=== PATIENT | male | born 1985 | race Caucasian/White ===

== ENCOUNTER 2017-09-24 04:15 | Emergency (ER) | payer OTHER ==
[~2017-09-24] VITALS: Ht 170.2 cm; Wt 68.0 kg
[~2017-09-24 04:15] MED LIST: ALBU90OI INH; AMOX500 PO; AZIT500 PO; BENZ100A PO; BUPRENORPHINE HC8 MG SL; Bactrim Ds Tab1 EACH PO; CEPH500 PO; CLON.5 PO; CODACE30 PO; CRUTCH4 USE; CYCL10 PO; Crutch1 EACH MISC; HYDACE5 PO; HYDR1TAB94 PO; IBUP600 PO; IBUP800 PO; Keflex500 MG PO; Mobic7.5 MG PO; NAPR375 PO; NAPR550; NAPR550 PO; Norco 5-325 Ta1 EACH PO; OXYACE5T PO; OXYACE7.5T PO; PENVK500 PO; PRED20 PO; PROM25 PO; RXTRAM50 PO; SULTRIDS PO; SUMA25 PO; TRAM50 PO; TREXIMET; [UNRECOGNIZED DRUG - REMARK]
[2017-09-24] MEDS ORDERED: Percocet 5-3251 EACH PO (06:22)
== END 2017-09-24 06:30 | disposition home or self-care (01) ==
LOC: ER 04:15
DX: S46.311A Strain of muscle, fascia and tendon of triceps, right arm, initial encounter (principal); F17.200 Nicotine dependence, unspecified, uncomplicated; X50.9XXA Other and unspecified overexertion or strenuous movements or postures, initial encounter
CPT/HCPCS: 73060; 99283

== ENCOUNTER 2017-10-06 16:43 | Emergency (ER) | payer OTHER ==
[~2017-10-06] VITALS: Ht 170.2 cm; Wt 74.8 kg
[~2017-10-06 16:43] MED LIST changes: +Percocet 5-3251 EACH PO
[2017-10-06] MEDS ORDERED: Bactrim Ds Tab1 EACH PO (17:26)
== END 2017-10-06 17:31 | disposition home or self-care (01) ==
LOC: ER 16:43
DX: L02.01 Cutaneous abscess of face (principal); F17.200 Nicotine dependence, unspecified, uncomplicated
CPT/HCPCS: 99282

== ENCOUNTER 2017-12-24 16:18 | Emergency (ER) | payer OTHER ==
[~2017-12-24] VITALS: Ht 167.6 cm; Wt 68.0 kg
[2017-12-24 17:01] LABS: BASOPHILS ABSOLUTE AUTO 0.03 K/mm3 (0.00-0.23); BASOPHILS PERCENT AUTO 1 % (0-2); EOSINOPHILS ABSOLUTE AUTO 0.12 K/mm3 (0.00-0.68); EOSINOPHILS PERCENT AUTO 3 % (0-6); Hematocrit 43.1 % (37.0-53.0); Hemoglobin 14.5 g/dL (13.5-17.5); IMMATURE GRAN ABSOLUTE AUTO 0.01 K/mm3 (0.00-0.10); IMMATURE GRAN PERCENT AUTO 0 % (0-1); LYMPHOCYTES ABSOLUTE AUTO 1.39 K/mm3 (0.84-5.20); LYMPHOCYTES PERCENT AUTO 32 % (21-46); MONOCYTES ABSOLUTE AUTO 0.49 K/mm3 (0.16-1.47); MONOCYTES PERCENT AUTO 11 % (4-13); Mean Corpuscular HGB 30.4 pg (26.0-34.0); Mean Corpuscular HGB Conc 33.6 g/dL (31.5-36.5); Mean Corpuscular Volume 90 fL (80-100); Mean Platelet Volume 9.7 fL (9.1-12.4); NEUTROPHILS ABSOLUTE AUTO 2.26 K/mm3 (1.96-9.15); NEUTROPHILS PERCENT AUTO 53 % (41-73); Platelet Count 158 K/mm3 (150-400); RDW Standard Deviation 42.5 fL (35.1-46.3); Red Blood Cell Count 4.77 M/mm3 (4.30-5.90)
[2017-12-24 18:29] LABS: Anion Gap 7 mmol/L (6-16); Blood Urea Nitrogen 15 mg/dL (8-24); CO2, Blood 24 mmol/L (21-32); Calcium, Blood 7.9 mg/dL (8.5-10.1); Chloride, Blood 109 mmol/L (98-108); Creatinine, Blood 0.68 mg/dL (0.60-1.20); Glomerular Filtration Rate >60 (60-); Glucose, Blood 99 mg/dL (70-99); Potassium, Blood 3.8 mmol/L (3.5-5.5); Sodium, Blood 140 mmol/L (136-145)
== END 2017-12-24 19:10 | disposition home or self-care (01) ==
LOC: ER 16:18
PROVIDERS: Emergency Medicine
DX: T40.1X1A Poisoning by heroin, accidental (unintentional), initial encounter (principal); G43.909 Migraine, unspecified, not intractable, without status migrainosus; F17.210 Nicotine dependence, cigarettes, uncomplicated
CPT/HCPCS: 80048; 85025; 93005; 93010; 96361; 96374; 99283; J2405; J7030

== ENCOUNTER 2018-03-14 23:17 | Emergency (ER) | payer OTHER ==
[~2018-03-14] VITALS: Ht 170.2 cm; Wt 70.3 kg
[2018-03-14] MEDS ORDERED: BUPRENORPHINE HC2 MG (23:29)
[2018-03-14] MEDS ORDERED: CLIN300 PO (23:46)
[2018-03-14] MEDS ORDERED: IBUP600 PO (23:46)
== END 2018-03-15 00:54 | disposition home or self-care (01) ==
LOC: ER 23:17
DX: L02.416 Cutaneous abscess of left lower limb (principal); L03.116 Cellulitis of left lower limb; Z79.899 Other long term (current) drug therapy; G43.909 Migraine, unspecified, not intractable, without status migrainosus; F17.210 Nicotine dependence, cigarettes, uncomplicated
CPT/HCPCS: 36415; 96365; 96375; 99283; J1885

== ENCOUNTER 2019-06-21 03:37 | Emergency (ER) | payer OTHER ==
[~2019-06-21] VITALS: Ht 170.2 cm; Wt 72.6 kg
[~2019-06-21 03:37] MED LIST changes: +BUPRENORPHINE HC2 MG; +CLIN300 PO
[2019-06-21 05:07] LABS: BASOPHILS ABSOLUTE AUTO 0.04 K/mm3 (0.00-0.23); BASOPHILS PERCENT AUTO 1 % (0-2); EOSINOPHILS PERCENT AUTO 4 % (0-6); Hematocrit 36.5 % (37.0-53.0); Hemoglobin 11.9 g/dL (13.5-17.5); IMMATURE GRAN ABSOLUTE AUTO 0.02 K/mm3 (0.00-0.10); IMMATURE GRAN PERCENT AUTO 0 % (0-1); LYMPHOCYTES ABSOLUTE AUTO 1.18 K/mm3 (0.84-5.20); LYMPHOCYTES PERCENT AUTO 16 % (21-46); MONOCYTES ABSOLUTE AUTO 0.51 K/mm3 (0.16-1.47); MONOCYTES PERCENT AUTO 7 % (4-13); Mean Corpuscular HGB 28.7 pg (26.0-34.0); Mean Corpuscular HGB Conc 32.6 g/dL (31.5-36.5); Mean Corpuscular Volume 88 fL (80-100); Mean Platelet Volume 9.3 fL (9.1-12.4); NEUTROPHILS ABSOLUTE AUTO 5.23 K/mm3 (1.96-9.15); NEUTROPHILS PERCENT AUTO 72 % (41-73); Platelet Count 290 K/mm3 (150-400); RDW Coefficient Variation 12.1 % (11.7-14.2); RDW Standard Deviation 39.4 fL (35.1-46.3); Red Blood Cell Count 4.14 M/mm3 (4.30-5.90); White Blood Cell Count 7.28 K/mm3 (4.00-11.30)
[2019-06-21 05:26] LABS: Alanine Aminotransfer (ALT/SGP 25 U/L (12-78); Albumin, Blood 3.2 g/dL (3.4-5.0); Albumin/Globulin Ratio 0.7 (0.8-1.8); Alk Phos 68 U/L (50-136); Anion Gap 6 mmol/L (6-16); Aspartate Aminotrans (AST/SGOT 18 U/L (12-37); Bilirubin, Total 0.9 mg/dL (0.1-1.0); Blood Urea Nitrogen 13 mg/dL (8-24); Bun/Creatinine Ratio 17.2 (12.0-20.0); CO2, Blood 32 mmol/L (21-32); Calcium, Blood 8.6 mg/dL (8.5-10.1); Chloride, Blood 100 mmol/L (98-108); Creatinine, Blood 0.76 mg/dL (0.60-1.20); Globulin, Blood 4.4 g/dL (2.2-4.0); Glomerular Filtration Rate >60 (60-); Glucose, Blood 89 mg/dL (70-99); Potassium, Blood 3.4 mmol/L (3.5-5.5); Sodium, Blood 138 mmol/L (136-145); Total Protein, Blood 7.6 g/dL (6.4-8.2)
[2019-06-21] MEDS ORDERED: Bactrim Ds Tab1 EACH PO (05:28)
[2019-06-21] MEDS ORDERED: IBUP600 PO (05:28)
[2019-06-21] MEDS ORDERED: Crutch1 EACH EXT (06:18)
== END 2019-06-21 06:26 | disposition home or self-care (01) ==
LOC: ER 03:37
PROVIDERS: Emergency Medicine
DX: L03.116 Cellulitis of left lower limb (principal); F17.210 Nicotine dependence, cigarettes, uncomplicated
CPT/HCPCS: 36415; 80053; 83605; 85025; 85651; 86141; 87040; 96365; 96375; 99283-25; J1885; J3370

== ENCOUNTER 2019-09-11 21:37 | Inpatient (IN) | payer OTHER ==
[~2019-09-11] VITALS: Ht 172.7 cm; Wt 68.0 kg
[~2019-09-11 21:37] MED LIST changes: +Crutch1 EACH EXT
[2019-09-12 00:11] LABS: BASOPHILS ABSOLUTE AUTO 0.04 K/mm3 (0.00-0.23); BASOPHILS PERCENT AUTO 0 % (0-2); EOSINOPHILS ABSOLUTE AUTO 0.14 K/mm3 (0.00-0.68); EOSINOPHILS PERCENT AUTO 1 % (0-6); Hemoglobin 11.5 g/dL (13.5-17.5); IMMATURE GRAN ABSOLUTE AUTO 0.03 K/mm3 (0.00-0.10); IMMATURE GRAN PERCENT AUTO 0 % (0-1); LYMPHOCYTES ABSOLUTE AUTO 1.13 K/mm3 (0.84-5.20); LYMPHOCYTES PERCENT AUTO 12 % (21-46); MONOCYTES ABSOLUTE AUTO 0.69 K/mm3 (0.16-1.47); MONOCYTES PERCENT AUTO 7 % (4-13); Mean Corpuscular HGB 27.6 pg (26.0-34.0); Mean Corpuscular HGB Conc 31.9 g/dL (31.5-36.5); Mean Corpuscular Volume 86 fL (80-100); Mean Platelet Volume 9.3 fL (9.1-12.4); NEUTROPHILS ABSOLUTE AUTO 7.71 K/mm3 (1.96-9.15); NEUTROPHILS PERCENT AUTO 79 % (41-73); Platelet Count 242 K/mm3 (150-400); RDW Coefficient Variation 13.1 % (11.7-14.2); RDW Standard Deviation 41.2 fL (35.1-46.3); Red Blood Cell Count 4.17 M/mm3 (4.30-5.90); White Blood Cell Count 9.74 K/mm3 (4.00-11.30)
[2019-09-12 00:36] LABS: Anion Gap 8 mmol/L (6-16); Blood Urea Nitrogen 11 mg/dL (8-24); Bun/Creatinine Ratio 16.1 (12.0-20.0); CO2, Blood 21 mmol/L (21-32); Calcium, Blood 7.3 mg/dL (8.5-10.1); Chloride, Blood 92 mmol/L (98-108); Creatinine, Blood 0.68 mg/dL (0.60-1.20); Glomerular Filtration Rate >60 (60-); Glucose, Blood 82 mg/dL (70-99); Potassium, Blood 3.3 mmol/L (3.5-5.5); Sodium, Blood 121 mmol/L (136-145)
[2019-09-12 01:35] LABS: International Normalized Ratio 1.03; Prothrombin Time Results 10.9 Sec (9.7-11.5)
--- NOTE | 2019-09-12 05:53 | NUR ---
SHIFT SUMMARY PATIENT IS ALERT AND ORIENTED. HE IS EXPERIENCING PAIN FROM A LARGE ABSCESS ON HIS NECK. ENT CONSULT CALLED IN TO DR CLARK. ANSWERING SERVICE WILL DELIVER THE MESSAGE AT 0700. PATIENT CHANGED FROM IV POTASSIUM TO PO DUE TO HIS INABILITY TO TOLERATE THE IV FORM. HE IS CURRENTLY ON ROOM AIR AND IS ON CONTINUOUS BIOX TO MONITOR HIS OXYGEN SATURATION. PATIENT'S IV IS PATENT AND INFUSING WITH NORMAL SALINE AT 100 ML/HR. BED IN LOWEST POSITION WITH WHEELS LOCKED. CALL LIGHT WITHIN REACH. REPORT GIVEN TO ONCOMING RN.
--- NOTE | 2019-09-12 16:57 | NUR ---
PT AOX4 AND COOPERATIVE OF CARE. PT TREATED FOR PAIN PER EMAR DUE TO ABCESS. DR CLARK WAS ABLE TO COME IN AND DRAIN ABCESS SENDING OF A SAMPLE TO BE TESTED FOR BACTERIA. COVERED ABCESS WITH GAUZE IN CASE THERE WAS ANY DRAINAGE. PT INDEPENDENT IN ROOM AND CALLS APPROPRAITELY. NO DISTRESS NOTED WILL CONTINUE TO MONITOR.
--- NOTE | 2019-09-13 04:36 | NUR ---
SHIFT SUMMARY PT CONTINUES TO HAVE NECK DISCOMFORT. PT RESPONDED WELL TO PAIN MEDICATION. PT HAS REPORTED INCREASED EASE IN BREATHING AND SWALLOWING. PT HAD NO OTHER ISSUES NOTED. PT REPORTS SLEEPING OFF AND ON T/O SHIFT. PT IS AWAKE WATCHING TV AND BREATHING EASY. CALL LIGHT IN REACH.
[2019-09-13 09:49] LABS: Vancomycin, Trough 11.5 ug/mL (5.0-10.0)
[2019-09-13 09:59] LABS: Anion Gap 9 mmol/L (6-16); Blood Urea Nitrogen 16 mg/dL (8-24); Bun/Creatinine Ratio 23.6 (12.0-20.0); CO2, Blood 23 mmol/L (21-32); Calcium, Blood 8.8 mg/dL (8.5-10.1); Chloride, Blood 109 mmol/L (98-108); Creatinine, Blood 0.68 mg/dL (0.60-1.20); Glomerular Filtration Rate >60 (60-); Glucose, Blood 72 mg/dL (70-99); Potassium, Blood 4.4 mmol/L (3.5-5.5); Sodium, Blood 141 mmol/L (136-145)
[2019-09-13] MEDS ORDERED: Augmentin 875-1 EACH PO (11:35)
--- NOTE | 2019-09-13 12:53 | NUR ---
PT DISCHARGED AT 1200. PT WAS SET ON DISCHARGING TODAY. ALL PAPERWORK WAS PREPARED AND REVIEWED AND EDCUATIONAL MATERIAL SENT WITH PT. PT VERY ANXIOUS TO LEAVE WANTED TO LEAVE WITHOUT PAPERS. MANAGE TO GET ALL PAPERWORK TO PT AND TOOK OUT IV. HAD PT SIGN LEFT ROOM TO PUT PAPER IN CHART AND PT LEFT ROOM IMMEDIATELY. 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 CALLED DR CLARK'S OFFICE TO LET HIM KNOW PT DISCHARGING AROUND NOON TODAY. PT DID NOT HAVE A PCP AND WAS INSTRUCTED TO SET UP CARE WITH [facility]. PT VERBALIZED UNDERSTANDING OF ALL INSTRUCTIONS.
== END 2019-09-13 11:53 | disposition home or self-care (01) | DRG 603 ==
LOC: ER 21:37 → MEDS 09-12 01:38 → ENPENDDIS 09-13 11:32 → MEDS 09-13 11:53
PROVIDERS: Hospitalist; Nurse Practitioner Acute Care; Physician Assistant; ADMIT Internal Medicine
PROC: 0J943ZZ Drainage of Right Neck Subcutaneous Tissue and Fascia, Percutaneous Approach (ICD-10-PCS; principal; 2019-09-12)
DX: L02.11 Cutaneous abscess of neck (principal); E87.1 Hypo-osmolality and hyponatremia; G43.909 Migraine, unspecified, not intractable, without status migrainosus; F17.210 Nicotine dependence, cigarettes, uncomplicated; F15.10 Other stimulant abuse, uncomplicated; E87.6 Hypokalemia; Z86.14 Personal history of Methicillin resistant Staphylococcus aureus infection
CPT/HCPCS: 36415; 70491; 80048; 80202; 83605; 85025; 85610; 85730; 87040; 87070; 87075; 87077; 87147; 87186; 87205; 94762; 96374-59; 99284-25; J1170; J1885; J3370; J3480; J7030; Q9967

== ENCOUNTER 2019-10-21 15:49 | Inpatient (IN) | payer OTHER ==
[~2019-10-21] VITALS: Ht 172.7 cm; Wt 69.4 kg
[~2019-10-21 15:49] MED LIST changes: +Augmentin 875-1 EACH PO
[2019-10-21 16:44] LABS: BASOPHILS ABSOLUTE AUTO 0.02 K/mm3 (0.00-0.23); BASOPHILS PERCENT AUTO 0 % (0-2); EOSINOPHILS ABSOLUTE AUTO 0.03 K/mm3 (0.00-0.68); EOSINOPHILS PERCENT AUTO 1 % (0-6); Hematocrit 32.8 % (37.0-53.0); Hemoglobin 10.8 g/dL (13.5-17.5); IMMATURE GRAN ABSOLUTE AUTO 0.11 K/mm3 (0.00-0.10); IMMATURE GRAN PERCENT AUTO 2 % (0-1); LYMPHOCYTES ABSOLUTE AUTO 0.54 K/mm3 (0.84-5.20); LYMPHOCYTES PERCENT AUTO 8 % (21-46); MONOCYTES ABSOLUTE AUTO 0.38 K/mm3 (0.16-1.47); MONOCYTES PERCENT AUTO 6 % (4-13); Mean Corpuscular HGB 26.6 pg (26.0-34.0); Mean Corpuscular HGB Conc 32.9 g/dL (31.5-36.5); Mean Corpuscular Volume 81 fL (80-100); Mean Platelet Volume 12.3 fL (9.1-12.4); NEUTROPHILS ABSOLUTE AUTO 5.41 K/mm3 (1.96-9.15); NEUTROPHILS PERCENT AUTO 83 % (41-73); Platelet Count 82 K/mm3 (150-400); RDW Coefficient Variation 14.6 % (11.7-14.2); RDW Standard Deviation 43.1 fL (35.1-46.3); Red Blood Cell Count 4.06 M/mm3 (4.30-5.90); White Blood Cell Count 6.49 K/mm3 (4.00-11.30)
[2019-10-21 17:02] LABS: Alanine Aminotransfer (ALT/SGP 17 U/L (12-78); Albumin, Blood 1.6 g/dL (3.4-5.0); Albumin/Globulin Ratio 0.3 (0.8-1.8); Alk Phos 89 U/L (50-136); Anion Gap 6 mmol/L (6-16); Aspartate Aminotrans (AST/SGOT 37 U/L (12-37); Bilirubin, Total 1.3 mg/dL (0.1-1.0); Blood Urea Nitrogen 17 mg/dL (8-24); Bun/Creatinine Ratio 20.8 (12.0-20.0); CO2, Blood 25 mmol/L (21-32); Calcium, Blood 7.4 mg/dL (8.5-10.1); Chloride, Blood 97 mmol/L (98-108); Creatinine, Blood 0.82 mg/dL (0.60-1.20); Globulin, Blood 5.5 g/dL (2.2-4.0); Glomerular Filtration Rate >60 (60-); Glucose, Blood 100 mg/dL (70-99); Potassium, Blood 4.4 mmol/L (3.5-5.5); Sodium, Blood 128 mmol/L (136-145); Total Protein, Blood 7.1 g/dL (6.4-8.2); Troponin I <0.015 ng/mL (0.000-0.040)
[2019-10-21] MEDS ORDERED: TRAZ50 PO (21:16)
[2019-10-22 00:17] LABS: Source, Urine Clean Catch
[2019-10-22 00:29] LABS: Appearance, Urine Clear (Clear); Bilirubin, Urine Neg (Neg); Blood, Urine 1+ (Neg); Color, Urine Yellow (P-Yellow); Glucose Qualitative, Urine Neg (Neg); Ketones, Urine Neg (Neg); Leukocyte Esterase, Urine Neg (Neg); Nitrite, Urine Neg (Neg); Protein, Urine 1+ (Neg); Specific Gravity, Urine 1.015 (1.003-1.022); Urobilinogen, Urine 1+ (Normal)
[2019-10-22 00:36] LABS: Bacteria Few /hpf; Squamous Epithelial Cells Few /hpf (Few)
[2019-10-22 00:41] LABS: U Amphetamine Screen Not Detected; U Barbituate Screen Not Detected; U Benzodiazapine Screen Not Detected; U Buprenorphine Screen DETECTED; U Cannabinoids Screen Not Detected; U Cocaine Screen Not Detected; U Methadone Screen Not Detected; U Methamphetamine Screen Not Detected; U Opiates Screen DETECTED; U Oxycodone Screen Not Detected; U Phencyclidine Screen Not Detected; U Propoxyphene Screen Not Detected
[2019-10-22 05:19] LABS: BASOPHILS ABSOLUTE AUTO 0.01 K/mm3 (0.00-0.23); BASOPHILS PERCENT AUTO 0 % (0-2); Hematocrit 23.1 % (37.0-53.0); Hemoglobin 7.7 g/dL (13.5-17.5); LYMPHOCYTES ABSOLUTE AUTO 0.43 K/mm3 (0.84-5.20); LYMPHOCYTES PERCENT AUTO 6 % (21-46); MONOCYTES ABSOLUTE AUTO 0.68 K/mm3 (0.16-1.47); MONOCYTES PERCENT AUTO 9 % (4-13); Mean Corpuscular HGB 26.8 pg (26.0-34.0); Mean Corpuscular HGB Conc 33.3 g/dL (31.5-36.5); Mean Corpuscular Volume 81 fL (80-100); Mean Platelet Volume 12.2 fL (9.1-12.4); Platelet Count 86 K/mm3 (150-400); RDW Coefficient Variation 14.5 % (11.7-14.2); RDW Standard Deviation 42.8 fL (35.1-46.3); Red Blood Cell Count 2.87 M/mm3 (4.30-5.90); White Blood Cell Count 7.27 K/mm3 (4.00-11.30)
[2019-10-22 05:22] LABS: EOSINOPHILS ABSOLUTE AUTO 0.02 K/mm3 (0.00-0.68); EOSINOPHILS PERCENT AUTO 0 % (0-6); IMMATURE GRAN ABSOLUTE AUTO 0.06 K/mm3 (0.00-0.10); IMMATURE GRAN PERCENT AUTO 1 % (0-1); NEUTROPHILS ABSOLUTE AUTO 6.07 K/mm3 (1.96-9.15); NEUTROPHILS PERCENT AUTO 84 % (41-73)
[2019-10-22 05:34] LABS: Alanine Aminotransfer (ALT/SGP 14 U/L (12-78); Albumin, Blood 1.2 g/dL (3.4-5.0); Albumin/Globulin Ratio 0.3 (0.8-1.8); Alk Phos 92 U/L (50-136); Anion Gap 7 mmol/L (6-16); Aspartate Aminotrans (AST/SGOT 22 U/L (12-37); Bilirubin, Total 0.8 mg/dL (0.1-1.0); Blood Urea Nitrogen 11 mg/dL (8-24); Bun/Creatinine Ratio 17.5 (12.0-20.0); CO2, Blood 21 mmol/L (21-32); Calcium, Blood 6.7 mg/dL (8.5-10.1); Chloride, Blood 107 mmol/L (98-108); Creatinine, Blood 0.63 mg/dL (0.60-1.20); Globulin, Blood 4.3 g/dL (2.2-4.0); Glomerular Filtration Rate >60 (60-); Glucose, Blood 110 mg/dL (70-99); Potassium, Blood 3.8 mmol/L (3.5-5.5); Sodium, Blood 135 mmol/L (136-145); Total Protein, Blood 5.5 g/dL (6.4-8.2)
--- NOTE | 2019-10-22 05:47 | NUR ---
SHIFT SUMMARY PATIENT ARRIVED FROM E.D. WITH A TEMP OF 100.6, HAS CONTINUED TO TREND DOWN THROUGH THE SHIFT, 98.9 @ 05:00. PATIENT HAS MAINTAINED DECENT URINE OUTPUT, ABOUT 1L IN LAST 12 HOURS. PATIENT DID RECEIVE 6L TOTAL FLUID BOLUS, BETWEEN ED AND ICU. CENTRAL LINE DRESSING WAS CHANGED @ 05:30. RIB PAIN WAS TREATED WITH X1 PRN TRAMADOL, MINIMAL IMPROVEMENT. OXYGENATION WAS MAINTAINED ON 1L NC, DID DESATURATE DURING SLEEP WHEN OFF OXYGEN. DOES C/O WORSENING RIB PAIN WHEN ASKED TO TAKE A DEEP BREATH. MAINTAINS IN STABLE SINUS TACHYCARDIA. HAVE STEADILY DECREASED LEVOPHED DRIP THROUGH NIGHT, CURRENTLY AT 5 MCG/MIN. NO BM. SKIN LOOKS CLEAN, DRY, INTACT, ABCESS ON RIGHT SIDE OF NECK IS HEALED, SLIGHT DISCOLORATION. ASSESSMENT IS CHARTED. VSS. WILL CONTINUE TO MONITOR.
--- NOTE | 2019-10-22 08:00 | NUR ---
Received report from Louis ZEPEDA. Patient supine in bed rest and awakened to verbal stimuli. He is alert and oriented and is able to communicate his needs and calls appropriately. He is on 1.5 L O2 via NC and sats low 90%'s. He has 22 ga IV LAC dressing intact and site WNL's and is flushed and SL'd. He also has Left Subclavin quad lumen CL idressing intact and site WNL's infusuing Levophed 3 mcg/minb and NS at 200ml/hr. He ueses urinal approprialtely. Called Dr Whitlock and he stated OK to feed and patient able to feed self.
--- NOTE | 2019-10-22 09:43 | NUR ---
Patient up to bathroom with minimal assist. Echo finished and Dr Whitlock given report. Dr Whitlock went in room and talked and assessed patient and is calling for opinion from [facility] on valve issues. Patient resting currently. He denies any need for pain intervention or any other needs.
--- NOTE | 2019-10-22 12:15 | NUR ---
Patient has been snacking between naps. Dr Whitlock went in and talked with patient about transfer to [facility] and he has agreed. We are currently awaiting room assignment. Increased Levophed to 6mcg/min for MAP in the 50s and systolic low 90's. He reamins on 1.5 L O2 via NC and sats low 90%'s. Mother called and gave update and he called sister to let her know.
[2019-10-22 13:46] LABS: Vancomycin, Trough 8.1 ug/mL (5.0-10.0)
--- NOTE | 2019-10-22 14:33 | NUR ---
Patient tolerated lunch well but later stated pain getting worse and scheduled med un available and called Dr Whitlock and got one time dose Dilaudid and he is resting well, VSS, Levophed remains at 6mcg/min ffor systolic 110. Patient has been up to bathroom with assist of lines and tubes.
--- NOTE | 2019-10-22 15:35 | NUR ---
Patient transferred via [facility]. Medicated for pain just prior to transport. 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 His Levophed 6mcg/min at double strength dosage and NS at 200ml/hr. Calling report to [facility] after Note.Family called and given room where he is being transferred.
== END 2019-10-22 15:45 | disposition short-term general hospital (02) | DRG 871 ==
LOC: ER 15:49 → PCU 21:49 → ICUE 21:49 → ICUW 22:24 → ICUE 22:29
PROVIDERS: Internal Medicine Critical Care Medicine; Physician Assistant; ADMIT Internal Medicine
DX: A41.02 Sepsis due to Methicillin resistant Staphylococcus aureus (principal); R65.21 Severe sepsis with septic shock; I26.90 Septic pulmonary embolism without acute cor pulmonale; I33.0 Acute and subacute infective endocarditis; F17.200 Nicotine dependence, unspecified, uncomplicated; F19.90 Other psychoactive substance use, unspecified, uncomplicated
CPT/HCPCS: 36415; 36556; 71045; 71046; 71260; 80053; 80202; 81001; 83605; 83880; 84484; 85025; 85379; 87040; 87077; 87081; 87147; 87186; 93005; 93010; 93306; 96361-59; 96365-59; 96375-59; 99285-25; C1751; J0692; J0696; J1170; J1644; J1885; J3370; J7030; J7060; P9046; Q9967

== ENCOUNTER 2020-03-29 05:45 | Emergency (ER) | payer OTHER ==
[~2020-03-29] VITALS: Ht 172.7 cm; Wt 70.3 kg
[~2020-03-29 05:45] MED LIST changes: +TRAZ50 PO
[2020-03-29] MEDS ORDERED: Bactrim Ds Tab1 EACH PO (07:09)
[2020-03-29] MEDS ORDERED: CEPH500 PO (07:09)
[2020-05-17] MEDS ORDERED: Bactrim Ds Tab1 EACH PO (04:27)
[2020-05-17] MEDS ORDERED: CEPH500 PO (04:27)
== END 2020-03-29 07:41 | disposition home or self-care (01) ==
LOC: ER 05:45
DX: L03.114 Cellulitis of left upper limb (principal); L03.113 Cellulitis of right upper limb; F11.90 Opioid use, unspecified, uncomplicated; F17.200 Nicotine dependence, unspecified, uncomplicated; Z86.14 Personal history of Methicillin resistant Staphylococcus aureus infection
CPT/HCPCS: 90471; 90714; 99283; A9270-GY

== ENCOUNTER 2020-06-14 19:17 | Emergency (ER) | payer OTHER ==
[~2020-06-14] VITALS: Ht 172.7 cm; Wt 70.3 kg
[~2020-06-14 19:17] MED LIST changes: +Cleocin HCl300 MG PO
[2020-06-15] MEDS ORDERED: METPRE4DP PO (10:30)
[2020-06-15] MEDS ORDERED: CHLORASEPTIC177 ML MM (10:30)
[2020-06-15] MEDS ORDERED: Monodox100 MG PO (10:30)
== END 2020-06-14 22:00 | disposition left against medical advice (07) ==
LOC: ER 19:17
DX: Z53.21 Procedure and treatment not carried out due to patient leaving prior to being seen by health care provider (principal)

== ENCOUNTER 2020-10-14 03:02 | Emergency (ER) | payer OTHER ==
[~2020-10-14] VITALS: Ht 170.2 cm; Wt 72.6 kg
[~2020-10-14 03:02] MED LIST changes: +CHLORASEPTIC177 ML MM; +METPRE4DP PO; +Monodox100 MG PO
[2020-10-14] MEDS ORDERED: Cleocin HCl300 MG PO (04:11)
== END 2020-10-14 04:22 | disposition home or self-care (01) ==
LOC: ER 03:02
DX: L02.415 Cutaneous abscess of right lower limb (principal)
CPT/HCPCS: 10060; 99283-25